=== PATIENT | female | born 1950 ===

== ENCOUNTER 2022-06-30 07:45 | Inpatient (IN) | payer OTHER ==
[~2022-06-30] VITALS: Ht 165.1 cm; Wt 85.7 kg
[2022-06-30] MEDS ORDERED: AVAPRO300 MG PO (10:00)
[2022-06-30] MEDS ORDERED: GABAPENTIN800 M1 PO (10:01)
[2022-06-30] MEDS ORDERED: SYNTHROID112 MCG PO (10:01)
[2022-06-30] MEDS ORDERED: BACLOFEN20 MG PO (10:01)
[2022-06-30] MEDS ORDERED: PEPCID40 MG PO (10:02)
[2022-06-30] MEDS ORDERED: DEXILANT60 MG PO (10:02)
[2022-06-30] MEDS ORDERED: ZETIA10 MG PO (10:02)
[2022-06-30] MEDS ORDERED: CRESTOR5 MG PO (10:02)
[2022-06-30] MEDS ORDERED: ACTONEL150 MG PO (10:03)
[2022-06-30] MEDS ORDERED: D3 + K2 DOTS 11 EACH PO (10:03)
[2022-06-30] MEDS ORDERED: OCREVUS300 MG/10 IV (10:04)
[2022-06-30] MEDS ORDERED: LINZESS145 MCG PO (10:05)
[2022-07-03] MEDS ORDERED: DULOXETINE HCL20 MG (08:07)
[2022-07-03] MEDS ORDERED: DICLOFENAC SOD100 GM (08:07)
[2022-07-03] MEDS ORDERED: NIFEDIPINE ER60 M1 (08:07)
[2022-07-03] MEDS ORDERED: MELOXICAM15 MG (08:08)
[2022-07-03] MEDS ORDERED: IBANDRONATE SO150 MG (08:08)
[2022-07-03] MEDS ORDERED: STOOL SOFTENER240 MG (08:08)
[2022-07-03] MEDS ORDERED: BOTOX100 UNIT (08:08)
[2022-07-03] MEDS ORDERED: CELECOXIB200 MG (08:08)
[2022-07-03] MEDS ORDERED: OPTIMAL D31250 MCG (08:08)
[2022-07-03] MEDS ORDERED: CYCLOBENZAPRINE10 MG (08:09)
== END 2022-07-11 17:19 | disposition home or self-care (01) | DRG 658 ==
LOC: O/R 07-03 05:28 → SURH 07-03 05:28 → SURG 07-03 07:00 → SURH 07-03 16:51
PROVIDERS: ADMIT Urology; ATTEND Urology
PROC: 0TT14ZZ Resection of Left Kidney, Percutaneous Endoscopic Approach (ICD-10-PCS; principal; 2022-07-03 07:00)
DX: C64.2 Malignant neoplasm of left kidney, except renal pelvis (principal)